=== PATIENT | female | born 1990 | race Two or more races ===

== ENCOUNTER 2017-07-09 20:43 | Emergency (ER) | payer BC ==
[~2017-07-09] VITALS: Ht 170.2 cm; Wt 81.6 kg
--- NOTE | 2017-07-09 20:47 | NUR ---
LIT CHILDERS AT BEDSIDE TO YAMIL HERNANDEZ.
[2017-07-09] MEDS ORDERED: IV NS 0.9% 1,000 ML IV ONE (21:00)
[2017-07-09] MEDS ORDERED: METOCLOPRAMIDE HCL 10 MG/2 ML VIAL IV ONE (21:00)
[2017-07-09] MEDS ORDERED: METOCLOPRAMIDE HCL 10 MG/2 ML VIAL ONE (21:02)
[2017-07-09 21:05] LABS: EOSINOPHILS # (AUTO) 0.1 /CMM (0.0-0.7); EOSINOPHILS % (AUTO) 1.8 % (0.0-6.0); HEMATOCRIT 37 % (33-45); HEMOGLOBIN 12.5 g/dL (11.5-14.8); LYMPHOCYTES # (AUTO) 2.3 /CMM (0.8-4.8); LYMPHOCYTES % (AUTO) 48.3 % (20.0-44.0); MEAN CORPUSCULAR HEMOGLOBIN 30 PG (26.0-33.0); MEAN CORPUSCULAR HGB CONC 34 g/dl (31.0-36.0); MEAN CORPUSCULAR VOLUME 87 fL (82-100); MONOCYTES # (AUTO) 0.6 /CMM (0.1-1.30); MONOCYTES % (AUTO) 13.1 % (2.0-12.0); NEUTROPHILS # (AUTO) 1.6 /CMM (1.8-8.9); NEUTROPHILS % (AUTO) 35.8 % (43.0-81.0); PLATELET COUNT (AUTO) 210 /CMM (150-450); RDW COEFFICIENT OF VARIATION 12.5 (11.5-15.0); WHITE BLOOD COUNT (AUTO) 4.6 K/uL (4.3-11.0)
[2017-07-09 21:12] LABS: CALCIUM, SERUM 8.5 mg/dL (8.5-10.1); CREATININE 0.9 mg/dL (0.6-1.3); POTASSIUM 3.8 mmol/L (3.5-5.1)
--- NOTE | 2017-07-09 21:23 | NUR ---
ER MD AT BEDSIDE TALKING TO PT REGARDING LAB RESULTS.
--- NOTE | 2017-07-09 21:37 | NUR ---
IV removed. Catheter intact and site benign. Pressure and 4x4 applied to site. No bleeding noted. Patient discharged to home in stable condition. Written and verbal after care instructions given. Patient verbalizes understanding of instruction. ambulatory with a steady gait
[2017-07-09 21:39] VITALS: BP 122/64
== END 2017-07-09 21:40 | disposition home or self-care (01) ==
LOC: ER 20:45
DX: R51 Headache (principal)
CPT/HCPCS: 36415; 80048; 85025; 96361; 96374; 99284; A4606; J2765; J7030; Z7610